=== PATIENT | male | born 1975 | race Asian ===

== ENCOUNTER 2022-07-30 20:50 | Inpatient (IN) | payer OTHER, MEDICAID ==
[~2022-07-30] VITALS: Ht 182.9 cm; Wt 87.6 kg
[2022-07-30] MEDS ORDERED: PANTOPRAZOLE SODIUM 40 MG/VIAL IV ONE (21:00)
[2022-07-30] MEDS ORDERED: ONDANSETRON HCL 4MG/2ML INJ IV ONE (21:00)
[2022-07-30 21:08] LABS: BG BASE EXCESS -9.7 mmol/L (-2.0-2.0); BG CARBOXYHEMOGLOBIN 0.8 % (0.5-1.5); BG DEOXYHEMOGLOBIN 5.5 % (0.0-5.0); BG FRACTION INSPIRED OXYGEN 21; BG HCO3 ACT 14.1 mmol/L (22.0-26.0); BG METHEMOGLOBIN 0.4 % (0.0-1.5); BG OXYGEN SATURATION 94.4 % (92.0-98.5); BG OXYHEMOGLOBIN 93.3 % (94.0-97.0); BG PCO2 23.7 mmHg (35.0-45.0); BG PH 7.393 (7.350-7.450); BG PO2 78.8 mmHg (75.0-100.0); BG SAMPLE SITE RIGHT BRACHIAL; BG TOTAL HEMOGLOBIN 7.4 g/dL (12.0-18.0); BG VENT MODE ROOM AIR
[2022-07-30 21:28] LABS: HEMATOCRIT. 25.1 % (42.0-52.0); HEMOGLOBIN. 7.6 g/dL (14.0-18.0); MEAN CORPUSCULAR HEMOGLOBIN 27.3 pg (28.0-32.0); MEAN PLATELET VOLUME 7.6 fl (7.4-10.4); PLATELET 205 x1000/uL (130-400); RED BLOOD CELL COUNT 2.78 mill/uL (4.7-6.1); RED CELL DISTRIBUTION WIDTH 18.6 % (11.6-14.6)
[2022-07-30 21:35] LABS: CHLORIDE 113 mEq/L (98-107)
[2022-07-30 21:42] LABS: TOTAL IRON BINDING CAPACITY 189 ug/dL (250-450)
[2022-07-30 21:44] LABS: INR 1.2; PROTHROMBIN TIME 12.3 sec (9.6-11.0)
[2022-07-30 22:02] LABS: PLATELET ESTIMATE NORMAL
[2022-07-31] VITALS (56 sets, daily range): BP systolic 85–162; BP diastolic 30–108
[2022-07-31] MEDS ORDERED: DIPHENHYDRAMINE 50MG/ML VIAL IV PRN
[2022-07-31] MEDS ORDERED: DEXT 5%/0.45% NACL 1000ML 1,000 ML IV SCH
[2022-07-31] MEDS ORDERED: PANTOPRAZOLE SODIUM 40 MG/VIAL IV SCH
[2022-07-31] MEDS ORDERED: OCTREOTIDE ACETATE 50 MCG/ML 1ML IV NR (00:15)
[2022-07-31] MEDS: OCTREOTIDE 1,000 MCG in SODIUM CHLORIDE 0.9% 100 ML IV SCH ×2 (01:12→19:30)
[2022-07-31] MEDS: ONDANSETRON HCL 4MG/2ML INJ IV PRN ×2 (01:16→09:44)
[2022-07-31 06:08] LABS: CLARITY URINE CLEAR (CLEAR); COLOR URINE YELLOW (YELLOW); KETONES URINE NEGATIVE (NEGATIVE); LEUKOCYTE ESTERASE URINE NEGATIVE (NEGATIVE); NITRITE URINE NEGATIVE (NEGATIVE); OCCULT BLOOD URINE NEGATIVE (NEGATIVE); PH URINE 5.5 (4.5-8.0); PROTEIN URINE NEGATIVE (NEGATIVE); SPECIFIC GRAVITY URINE 1.016 (1.005-1.030); UROBILINOGEN URINE 0.2 E.U./dL (0.2-1.0)
[2022-07-31 06:39] LABS: BASOPHILS % 0.4 % (0.0-2.0); HEMATOCRIT. 25.7 % (42.0-52.0); HEMOGLOBIN. 8.5 g/dL (14.0-18.0); LYMPHOCYTES % 7.4 % (20.0-50.0); MEAN CORPUSCULAR HEMOGLOBIN 29.1 pg (28.0-32.0); MEAN CORPUSCULAR VOLUME 88.4 fL (80.0-94.0); MEAN PLATELET VOLUME 7.5 fl (7.4-10.4); MONOCYTES % 6.2 % (2.0-8.0); PLATELET 137 x1000/uL (130-400); RED BLOOD CELL COUNT 2.91 mill/uL (4.7-6.1); RED CELL DISTRIBUTION WIDTH 17.2 % (11.6-14.6)
[2022-07-31 06:50] LABS: CHLORIDE 114 mEq/L (98-107)
[2022-07-31] MEDS: PANTOPRAZOLE SODIUM 40 MG/VIAL IV SCH ×2 (09:23→20:38)
[2022-07-31] MEDS ORDERED: PHENYLEPHRINE 100 MG in DEXT 5% WATER 240 ML IV PRN (11:00)
[2022-07-31] MEDS: SODIUM BICARBONATE 100 MEQ in DEXTROSE 5% WATER 1,000 ML IV SCH (11:25)
[2022-07-31] MEDS ORDERED: METOCLOPRAMIDE HCL 10MG/2ML VIAL IV PRN (12:45)
[2022-07-31] MEDS ORDERED: SODIUM POLYSTYRENE SULFONATE 15 G/60 ML BOT PO NR (13:15)
[2022-07-31 18:55] LABS: HEMATOCRIT 34.9 % (42.0-52.0); HEMOGLOBIN 10.9 g/dL (14.0-18.0)
[2022-07-31] MEDS ORDERED: DEXTROSE 50% WATER 50ML SYRINGE IV NR (20:00)
[2022-07-31] MEDS ORDERED: INSULIN REGULAR (HUMULIN R) 300UNITS/3ML VIAL IV NR (20:00)
[2022-07-31] MEDS ORDERED: CALCIUM CHLORIDE 1GM/10ML SYR IV NR (20:00)
[2022-08-01] VITALS (88 sets, daily range): BP systolic 87–145; BP diastolic 55–124
[2022-08-01 01:54] LABS: SODIUM URINE RANDOM < 5 mEq/L
[2022-08-01 02:19] LABS: BG BASE EXCESS -8.2 mmol/L (-2.0-2.0); BG CARBOXYHEMOGLOBIN 0.1 % (0.5-1.5); BG HCO3 ACT 13.8 mmol/L (22.0-26.0); BG METHEMOGLOBIN 0.4 % (0.0-1.5); BG OXYHEMOGLOBIN 96.5 % (94.0-97.0); BG PCO2 19.5 mmHg (35.0-45.0); BG PH 7.467 (7.350-7.450); BG PO2 99.9 mmHg (75.0-100.0); BG SAMPLE SITE RIGHT RADIAL; BG VENT MODE NASAL CANNULA
[2022-08-01] MEDS: SODIUM BICARBONATE 100 MEQ in DEXTROSE 5% WATER 1,000 ML IV SCH (02:19)
[2022-08-01 05:27] LABS: BASOPHILS % 0.2 % (0.0-2.0); HEMATOCRIT. 27.8 % (42.0-52.0); HEMOGLOBIN. 9.3 g/dL (14.0-18.0); LYMPHOCYTES % 7.1 % (20.0-50.0); MEAN CORPUSCULAR HEMOGLOBIN 28.4 pg (28.0-32.0); MEAN PLATELET VOLUME 7.5 fl (7.4-10.4); MONOCYTES % 5.2 % (2.0-8.0); NEUTROPHILS % 85.5 % (40.0-76.0); PLATELET 180 x1000/uL (130-400); RED BLOOD CELL COUNT 3.27 mill/uL (4.7-6.1)
[2022-08-01 05:34] LABS: CHLORIDE 115 mEq/L (98-107)
[2022-08-01] MEDS: LACTULOSE 20G/30ML UDC PO SCH ×6 (05:45→23:48)
[2022-08-01 05:46] LABS: CREATINE KINASE 33 IU/L (39-308); PHOSPHORUS 3.8 mg/dL (2.5-4.9)
[2022-08-01] MEDS ORDERED: LIDOCAINE HCL 1% 30ML VIAL (10MG/ML) ONE (07:18)
[2022-08-01] MEDS: PANTOPRAZOLE SODIUM 40 MG/VIAL IV SCH ×2 (08:48→20:38)
[2022-08-01 08:58] LABS: BG BASE EXCESS -6.3 mmol/L (-2.0-2.0); BG CARBOXYHEMOGLOBIN 0.3 % (0.5-1.5); BG DEOXYHEMOGLOBIN 2.2 % (0.0-5.0); BG FRACTION INSPIRED OXYGEN 26; BG HCO3 ACT 15.4 mmol/L (22.0-26.0); BG METHEMOGLOBIN 0.3 % (0.0-1.5); BG OXYGEN SATURATION 97.8 % (92.0-98.5); BG OXYHEMOGLOBIN 97.2 % (94.0-97.0); BG PCO2 20.4 mmHg (35.0-45.0); BG PH 7.497 (7.350-7.450); BG PO2 112.9 mmHg (75.0-100.0); BG SAMPLE SITE RIGHT RADIAL; BG TOTAL HEMOGLOBIN 9.7 g/dL (12.0-18.0); BG VENT MODE NASAL CANNULA
[2022-08-01] MEDS: LACTULOSE 20G/30ML UDC NG SCH ×3 (10:57→18:06)
[2022-08-01] MEDS: RIFAXIMIN 550 MG TABLET NG SCH ×2 (10:58→20:38)
[2022-08-01] MEDS: CEFEPIME 1,000 MG in DEXTROSE 5% WATER 50 ML IV SCH ×2 (11:05→20:38)
[2022-08-01] MEDS ORDERED: NEOMYCIN 500MG TABLET NG NR (12:00)
[2022-08-01] MEDS ORDERED: CYAN100096 MT (12:29)
[2022-08-01] MEDS ORDERED: OMEP20CA14 PO (12:29)
[2022-08-01] MEDS ORDERED: ENTE0.5T11 MT (12:33)
[2022-08-01] MEDS ORDERED: NADO20TA MT (12:35)
[2022-08-01] MEDS ORDERED: NIVO40VI IV (12:44)
[2022-08-01] MEDS: DEXT 5%/0.9% NACL 1,000 ML IV SCH ×2 (13:26→23:30)
[2022-08-01] MEDS: OCTREOTIDE 1,000 MCG in SODIUM CHLORIDE 0.9% 100 ML IV SCH (18:07)
[2022-08-02] VITALS (86 sets, daily range): BP systolic 85–166; BP diastolic 26–97
[2022-08-02] MEDS: LACTULOSE 20G/30ML UDC PO SCH ×4 (05:19→23:47)
[2022-08-02 05:47] LABS: HEMATOCRIT. 21.9 % (42.0-52.0); HEMOGLOBIN. 7.2 g/dL (14.0-18.0); MEAN CORPUSCULAR HEMOGLOBIN 28.3 pg (28.0-32.0); MEAN CORPUSCULAR VOLUME 86.1 fL (80.0-94.0); MEAN PLATELET VOLUME 6.6 fl (7.4-10.4); PLATELET 111 x1000/uL (130-400); RED BLOOD CELL COUNT 2.54 mill/uL (4.7-6.1); RED CELL DISTRIBUTION WIDTH 17.3 % (11.6-14.6)
[2022-08-02 06:11] LABS: CHLORIDE 119 mEq/L (98-107)
[2022-08-02 06:19] LABS: PHOSPHORUS 4.2 mg/dL (2.5-4.9)
[2022-08-02 08:07] LABS: *CREATININE RANDOM URINE 46.7 mg/dL (Not Estab.); MICROALBUMIN RANDOM URINE 4.9 ug/mL (Not Estab.)
[2022-08-02] MEDS: RIFAXIMIN 550 MG TABLET NG SCH ×2 (08:26→21:03)
[2022-08-02] MEDS: CEFEPIME 1,000 MG in DEXTROSE 5% WATER 50 ML IV SCH ×2 (08:26→21:03)
[2022-08-02] MEDS: PANTOPRAZOLE SODIUM 40 MG/VIAL IV SCH ×2 (08:26→21:03)
[2022-08-02 09:15] LABS: BG BASE EXCESS -6.1 mmol/L (-2.0-2.0); BG CARBOXYHEMOGLOBIN 0.3 % (0.5-1.5); BG DEOXYHEMOGLOBIN 15.7 % (0.0-5.0); BG FRACTION INSPIRED OXYGEN 22; BG HCO3 ACT 17.1 mmol/L (22.0-26.0); BG METHEMOGLOBIN 1.7 % (0.0-1.5); BG OXYHEMOGLOBIN 82.3 % (94.0-97.0); BG PH 7.452 (7.350-7.450); BG PO2 51.5 mmHg (75.0-100.0); BG SAMPLE SITE RIGHT RADIAL; BG TOTAL HEMOGLOBIN 7.4 g/dL (12.0-18.0); BG VENT MODE NASAL CANNULA
[2022-08-02 09:30] LABS: PLATELET ESTIMATE SLIGHTLY DECREASED
[2022-08-02] MEDS ORDERED: ALBUMIN HUMAN 12.5GM/50ML (25%) IV PRN (11:30)
[2022-08-02] MEDS: OCTREOTIDE 1,000 MCG in SODIUM CHLORIDE 0.9% 100 ML IV SCH (12:43)
[2022-08-02 15:17] LABS: INR 1.2; PROTHROMBIN TIME 12.8 sec (9.6-11.0)
[2022-08-02] MEDS: THIAMINE HCL 100MG TABLET NG SCH (15:18)
[2022-08-02 16:50] LABS: HEMATOCRIT 26.4 % (42.0-52.0); HEMOGLOBIN 8.4 g/dL (14.0-18.0)
[2022-08-02] MEDS: DEXT 5%/0.9% NACL 1,000 ML IV SCH (21:15)
[2022-08-03] VITALS (49 sets, daily range): BP systolic 92–141; BP diastolic 50–87
[2022-08-03] MEDS: LACTULOSE 20G/30ML UDC PO SCH ×3 (05:13→18:15)
[2022-08-03 05:17] LABS: HEMATOCRIT. 25.3 % (42.0-52.0); HEMOGLOBIN. 8.2 g/dL (14.0-18.0); MEAN CORPUSCULAR VOLUME 89.5 fL (80.0-94.0); MEAN PLATELET VOLUME 6.9 fl (7.4-10.4); PLATELET 102 x1000/uL (130-400); RED BLOOD CELL COUNT 2.82 mill/uL (4.7-6.1)
[2022-08-03 05:25] LABS: INR 1.2; PROTHROMBIN TIME 12.6 sec (9.6-11.0)
[2022-08-03 05:26] LABS: CHLORIDE 123 mEq/L (98-107)
[2022-08-03 05:50] LABS: PHOSPHORUS 4.3 mg/dL (2.5-4.9)
[2022-08-03 06:00] LABS: VITAMIN B12 SERUM 1375 pg/mL (211-911)
[2022-08-03] MEDS ORDERED: LIDOCAINE HCL/PF 1% 10 MG/ML 5ML VIAL ONE (08:21)
[2022-08-03] MEDS ORDERED: SODIUM BICARBONATE 4% (2.4MEQ) 5ML VIAL IV ONE (08:21)
[2022-08-03 08:42] LABS: BG BASE EXCESS -6.8 mmol/L (-2.0-2.0); BG CARBOXYHEMOGLOBIN 0.6 % (0.5-1.5); BG DEOXYHEMOGLOBIN 4.7 % (0.0-5.0); BG FRACTION INSPIRED OXYGEN 21; BG HCO3 ACT 17.1 mmol/L (22.0-26.0); BG METHEMOGLOBIN 0.4 % (0.0-1.5); BG OXYGEN SATURATION 95.3 % (92.0-98.5); BG OXYHEMOGLOBIN 94.3 % (94.0-97.0); BG PCO2 28.4 mmHg (35.0-45.0); BG PH 7.398 (7.350-7.450); BG PO2 85.4 mmHg (75.0-100.0); BG SAMPLE SITE RIGHT BRACHIAL; BG TOTAL HEMOGLOBIN 8.8 g/dL (12.0-18.0); BG VENT MODE ROOM AIR
[2022-08-03] MEDS: RIFAXIMIN 550 MG TABLET NG SCH ×2 (09:02→21:11)
[2022-08-03] MEDS: PANTOPRAZOLE SODIUM 40 MG/VIAL IV SCH ×2 (09:02→21:10)
[2022-08-03] MEDS: THIAMINE HCL 100MG TABLET NG SCH (09:02)
[2022-08-03] MEDS: OCTREOTIDE 1,000 MCG in SODIUM CHLORIDE 0.9% 100 ML IV SCH (09:03)
[2022-08-03] MEDS: CEFEPIME 1,000 MG in DEXTROSE 5% WATER 50 ML IV SCH ×2 (09:03→21:10)
[2022-08-03 17:09] LABS: PLATELET ESTIMATE DECREASED
[2022-08-04] VITALS (12 sets, daily range): BP systolic 99–124; BP diastolic 54–81
[2022-08-04] MEDS: LACTULOSE 20G/30ML UDC PO SCH ×4 (00:11→17:00)
[2022-08-04] MEDS: DEXT 5%/0.9% NACL 1,000 ML IV SCH ×2 (00:11→12:20)
[2022-08-04] MEDS: OCTREOTIDE 1,000 MCG in SODIUM CHLORIDE 0.9% 100 ML IV SCH (05:38)
[2022-08-04] MEDS: THIAMINE HCL 100MG TABLET NG SCH (09:30)
[2022-08-04] MEDS: CEFEPIME 1,000 MG in DEXTROSE 5% WATER 50 ML IV SCH ×2 (09:30→20:42)
[2022-08-04] MEDS: PANTOPRAZOLE SODIUM 40 MG/VIAL IV SCH ×2 (09:30→20:42)
[2022-08-04] MEDS: RIFAXIMIN 550 MG TABLET NG SCH ×2 (09:30→20:42)
[2022-08-05] VITALS (10 sets, daily range): BP systolic 103–116; BP diastolic 65–81
[2022-08-05 04:27] LABS: HEMATOCRIT. 28.4 % (42.0-52.0); HEMOGLOBIN. 9.2 g/dL (14.0-18.0); MEAN CORPUSCULAR HEMOGLOBIN 29.3 pg (28.0-32.0); MEAN CORPUSCULAR VOLUME 90.2 fL (80.0-94.0); PLATELET 98 x1000/uL (130-400); RED BLOOD CELL COUNT 3.15 mill/uL (4.7-6.1); RED CELL DISTRIBUTION WIDTH 18.7 % (11.6-14.6)
[2022-08-05 04:35] LABS: PHOSPHORUS 2.5 mg/dL (2.5-4.9)
[2022-08-05 04:54] LABS: INR 1.3; PROTHROMBIN TIME 13.8 sec (9.6-11.0)
[2022-08-05 07:59] LABS: PLATELET ESTIMATE DECREASED
[2022-08-05] MEDS: CEFEPIME 1,000 MG in DEXTROSE 5% WATER 50 ML IV SCH ×2 (08:02→20:38)
[2022-08-05] MEDS: PANTOPRAZOLE SODIUM 40 MG/VIAL IV SCH ×2 (08:02→20:38)
[2022-08-05] MEDS: THIAMINE HCL 100MG TABLET NG SCH (08:11)
[2022-08-05] MEDS: RIFAXIMIN 550 MG TABLET NG SCH ×2 (08:11→20:38)
[2022-08-05] MEDS: LACTULOSE 20G/30ML UDC PO SCH ×2 (08:11→17:00)
[2022-08-05] MEDS ORDERED: MIDAZOLAM HCL 2 MG/2 ML VIAL ONE (13:12)
[2022-08-05] MEDS ORDERED: PROPOFOL 200MG/20ML VIAL IV ONE (13:14)
[2022-08-05] MEDS ORDERED: DEXAMETHASONE 4MG/ML 1ML VIAL ONE (13:26)
[2022-08-05] MEDS ORDERED: ONDANSETRON HCL 4MG/2ML INJ ONE (13:26)
[2022-08-06] VITALS (9 sets, daily range): BP systolic 97–110; BP diastolic 55–80
[2022-08-06] MEDS: LACTULOSE 20G/30ML UDC PO SCH ×2 (08:57→16:46)
[2022-08-06] MEDS: THIAMINE HCL 100MG TABLET NG SCH (08:57)
[2022-08-06] MEDS: RIFAXIMIN 550 MG TABLET NG SCH (08:57)
[2022-08-06] MEDS: PANTOPRAZOLE SODIUM 40 MG/VIAL IV SCH ×2 (08:57→21:49)
[2022-08-06] MEDS: CEFEPIME 1,000 MG in DEXTROSE 5% WATER 50 ML IV SCH ×2 (08:58→21:49)
[2022-08-06 09:37] LABS: HEMATOCRIT. 29.7 % (42.0-52.0); HEMOGLOBIN. 9.4 g/dL (14.0-18.0); MEAN CORPUSCULAR VOLUME 91.5 fL (80.0-94.0); PLATELET 92 x1000/uL (130-400); RED BLOOD CELL COUNT 3.25 mill/uL (4.7-6.1)
[2022-08-06 10:34] LABS: PHOSPHORUS 3.8 mg/dL (2.5-4.9)
[2022-08-06 12:26] LABS: PLATELET ESTIMATE DECREASED
[2022-08-06] MEDS ORDERED: SODIUM POLYSTYRENE SULFONATE 15 G/60 ML BOT PO NR (13:15)
[2022-08-07] VITALS (7 sets, daily range): BP systolic 90–104; BP diastolic 48–73
[2022-08-07 06:40] LABS: HEMATOCRIT. 25.5 % (42.0-52.0); HEMOGLOBIN. 8.3 g/dL (14.0-18.0); MEAN CORPUSCULAR HEMOGLOBIN 29.5 pg (28.0-32.0); MEAN CORPUSCULAR VOLUME 90.3 fL (80.0-94.0); MEAN PLATELET VOLUME 7.4 fl (7.4-10.4); PLATELET 108 x1000/uL (130-400); RED BLOOD CELL COUNT 2.82 mill/uL (4.7-6.1); RED CELL DISTRIBUTION WIDTH 19.5 % (11.6-14.6)
[2022-08-07 07:06] LABS: PHOSPHORUS 3.6 mg/dL (2.5-4.9)
[2022-08-07] MEDS: THIAMINE HCL 100MG TABLET NG SCH (08:11)
[2022-08-07] MEDS: PANTOPRAZOLE SODIUM 40 MG/VIAL IV SCH (08:11)
[2022-08-07] MEDS: LACTULOSE 20G/30ML UDC PO SCH (08:19)
[2022-08-07] MEDS ORDERED: SODIUM BICARBONATE 4% (2.4MEQ) 5ML VIAL IV ONE (09:14)
[2022-08-07] MEDS ORDERED: LIDOCAINE HCL/PF 1% 10 MG/ML 5ML VIAL ONE (09:15)
[2022-08-07 09:25] LABS: PLATELET ESTIMATE DECREASED
[2022-08-07] MEDS: ONDANSETRON HCL 4MG/2ML INJ IV PRN (13:28)
== END 2022-08-07 15:40 | disposition home or self-care (01) | DRG 377 ==
LOC: ER 20:50 → MICUSO 07-31 00:43 → MICUNO 07-31 10:21 → 5EST 08-03 14:37
PROVIDERS: ADMIT Internal Medicine; ATTEND Internal Medicine
PROC: 30233N1 Transfusion of Nonautologous Red Blood Cells into Peripheral Vein, Percutaneous Approach (ICD-10-PCS; principal; 2022-07-30)
PROC: 02HV33Z Insertion of Infusion Device into Superior Vena Cava, Percutaneous Approach (ICD-10-PCS; 2022-08-01)
PROC: B548ZZA Ultrasonography of Superior Vena Cava, Guidance (ICD-10-PCS; 2022-08-01)
PROC: 0W9G3ZZ Drainage of Peritoneal Cavity, Percutaneous Approach (ICD-10-PCS; 2022-08-03)
PROC: 06L38CZ Occlusion of Esophageal Vein with Extraluminal Device, Via Natural or Artificial Opening Endoscopic (ICD-10-PCS; 2022-08-05)
PROC: 0W9G3ZZ Drainage of Peritoneal Cavity, Percutaneous Approach (ICD-10-PCS; 2022-08-07)
DX: K92.0 Hematemesis (principal); E43 Unspecified severe protein-calorie malnutrition; K85.90 Acute pancreatitis without necrosis or infection, unspecified; G92.8 Other toxic encephalopathy; C22.0 Liver cell carcinoma; D62 Acute posthemorrhagic anemia; I82.412 Acute embolism and thrombosis of left femoral vein; B18.1 Chronic viral hepatitis B without delta-agent; R18.8 Other ascites; N17.9 Acute kidney failure, unspecified; K76.6 Portal hypertension; N13.2 Hydronephrosis with renal and ureteral calculous obstruction; E87.4 Mixed disorder of acid-base balance; E87.0 Hyperosmolality and hypernatremia; E72.20 Disorder of urea cycle metabolism, unspecified; K74.60 Unspecified cirrhosis of liver; E87.5 Hyperkalemia; N18.30 Chronic kidney disease, stage 3 unspecified; I95.9 Hypotension, unspecified; K31.89 Other diseases of stomach and duodenum; D69.6 Thrombocytopenia, unspecified; I85.10 Secondary esophageal varices without bleeding; K44.9 Diaphragmatic hernia without obstruction or gangrene; K72.90 Hepatic failure, unspecified without coma; Z20.822 Contact with and (suspected) exposure to COVID-19; I12.9 Hypertensive chronic kidney disease with stage 1 through stage 4 chronic kidney disease, or unspecified chronic kidney disease; K80.20 Calculus of gallbladder without cholecystitis without obstruction; R16.1 Splenomegaly, not elsewhere classified; Z87.442 Personal history of urinary calculi; Z92.21 Personal history of antineoplastic chemotherapy; Z88.1 Allergy status to other antibiotic agents; Z68.26 Body mass index [BMI] 26.0-26.9, adult; Z90.49 Acquired absence of other specified parts of digestive tract
CPT/HCPCS: 36415; 36573; 36600; 49083; 71045; 74176; 76700; 80048; 80053; 80076; 81003; 82040; 82043; 82140; 82248; 82306; 82330; 82375; 82550; 82570; 82607; 82805; 83540; 83550; 83605; 83615; 83735; 83880; 83935; 83970; 84100; 84132; 84145; 84300; 84484; 85014; 85018; 85025; 85044; 86850; 86900; 86920; 87015; 87045; 87426; 87427; 87449; 89055; 93005; 93970; 97162; 99291; A6261; C1725; C1769; C9113; J0692; J1100; J1200; J1815; J2250; J2354; J2370; J2405; J2704; J2765; J3490; J7042; J7050; J7060; J7070; P9016; P9047; A4315